=== PATIENT | female | born 1950 | race Caucasian/White ===

== ENCOUNTER 2017-08-08 13:16 | Outpatient (CLI) | payer MEDICARE, OTHER ==
--- NOTE | 2017-08-08 15:05 | RAD ---
FOUR VIEWS CERVICAL SPINE: FOUR VIEWS CERVICAL SPINE: Date: 08-08-17 History: Cervical disc degeneration. Bilateral hand numbness for four months. FINDINGS: C1 to the cervicothoracic junction seen on the lateral and swimmer's views of the cervical spine. Th ere are posterior changes related to anterior cervical fusion at the C5-6 and C6-7 levels with anter ior plate and screws transfixing this level. Intradiscal prosthesis are seen. No hardware complicati ons identified. There is a large osteophyte seen anteriorly at the C4-5 level. The vertebral body he ights are within normal limits. There is questionable slight anterolisthesis of C7 on T1. There are facet degenerative changes noted at this level. No obvious fracture is seen. Prevertebral soft tissu es are within normal limits. IMPRESSION: 1. Suggestion of slight anterolisthesis of C7 on T1. 2. Anterior cervical fusion at C5-6 and C6-7 levels. 3. Degenerative changes at the C4-5 level. 4. The post-surgical changes are stable compared to a study on 05-09-12. POS: [facility]
--- NOTE | 2017-08-08 16:32 | MRI ---
MRI CERVICAL SPINE WITH AND WITHOUT CONTRAST: Date: 08-08-17 History: Cervical disc degeneration. Bilateral arm numbness for four months. Patient denies injury. History of cervical spine surgery. Comparison: 02-16-12 FINDINGS: There are post-surgical changes related to anterior cervical fusion with metallic susceptibility art ifact related to anterior plate and screws transfixing the C5-6 and C6-7 levels. There is slight anterolisthesis of C3 on C4, similar to prior exam. There is otherwise normal signal intensity demonstrated throughout the bone marrow. C2-3: There is no significant disc bulge. There is mild facet degenerative changes on the left resul ting in mild left sided neural foraminal narrowing. The right neural foramen and central spinal frandy l are patent. C3-4: There is a mild broad based disc osteophyte complex which narrows the ventral subarachnoid spa ce resulting in slight mass effect on the anterior aspect of the central spinal cord. There are face t hypertrophic changes on the left with resulting mild to moderate left sided neural foraminal narro wing. The right neural foramen is patent. C4-5: There is posterior osteophyte formation with minimal disc bulge. There are facet hypertrophic changes primarily on the right. Findings result in mild central canal narrowing with moderate to sev ere bilateral neural foraminal narrowing. C5-6: There is a broad based disc osteophyte present which narrows the ventral subarachnoid space. T here is severe bilateral neural foraminal narrowing, greater on the left. C6-7: There is posterior osteophyte formation that slightly narrows the ventral subarachnoid space. Right neural foramen is patent, but there is mild to moderate left sided neural foraminal narrowing. C7-T1: There is minimal disc bulge. Central spinal canal and neural foramina are patent at this leve l. T1-2: There is minimal disc bulge narrowing the ventral subarachnoid space. Neural foramina are rizo nt at this level. No abnormal areas of enhancement are seen after the administration of intravenous contrast. IMPRESSION: 1. Post-surgical changes related to anterior cervical fusion at C5-6 and C6-7 levels. 2. Mild multilevel degenerative changes present. There is moderate to severe bilateral neural forami nal narrowing at the C4-5 level, primarily related to bony encroachment on each neural foramen. Carmen lar findings are seen at the C5-6 level. POS: [facility]
[2017-08-08] MEDS ORDERED: Gadobenate Dimeglumine 529 MG/1 ML (20ML VIAL) ONE (17:21)
== END 2017-08-08 13:17 | disposition home or self-care (01) ==
LOC: TBSIIMAG 13:16
PROVIDERS: ATTEND Neurological Surgery
DX: M50.30 Other cervical disc degeneration, unspecified cervical region (principal); M47.812 Spondylosis without myelopathy or radiculopathy, cervical region; M48.02 Spinal stenosis, cervical region; M43.12 Spondylolisthesis, cervical region; Z98.1 Arthrodesis status
CPT/HCPCS: 72050; 72156; A9579

== ENCOUNTER 2022-01-14 10:31 | Day surgery (SDC) | payer MEDICARE ==
[2022-01-12 15:43] VITALS: BMI 28.8
[2022-01-14] MEDS ORDERED: Levofloxacin 500 mg/D5W 100 ml Premix Bag ONE (11:23)
[2022-01-14] MEDS ORDERED: PROPOFOL 200 MG/20 ML VIAL ONE (11:51)
[2022-01-14] MEDS ORDERED: Ondansetron PF 4 MG/2 ML Vial ONE (11:51)
[2022-01-14] MEDS ORDERED: Lidocaine 1% PF 5 ML VIAL ONE (11:51)
[2022-01-14] MEDS ORDERED: Midazolam HCl 2 mg/2 ml Vial ONE (12:07)
[2022-01-14] MEDS ORDERED: Fentanyl 100 MCG/2 ML VIAL ONE (12:07)
[2022-01-14] MEDS ORDERED: Bupivacaine PF 0.5% 30 ML VIAL ONE ×2 (12:09→15:00)
[2022-01-14] MEDS ORDERED: Clindamycin/D5W 900 mg/50 ml Premix Bag ONE (12:23)
== END 2022-01-14 15:35 | disposition home or self-care (01) ==
LOC: SDC 10:31
PROVIDERS: ATTEND Orthopaedic Surgery
PROC: 0QSF04Z Reposition Left Patella with Internal Fixation Device, Open Approach (ICD-10-PCS; principal; 2022-01-14)
PROC: 3E0T3BZ Introduction of Anesthetic Agent into Peripheral Nerves and Plexi, Percutaneous Approach (ICD-10-PCS; 2022-01-14)
DX: S82.032A Displaced transverse fracture of left patella, initial encounter for closed fracture (principal); J45.909 Unspecified asthma, uncomplicated; G43.909 Migraine, unspecified, not intractable, without status migrainosus; Z79.01 Long term (current) use of anticoagulants; Z79.899 Other long term (current) drug therapy; Z88.0 Allergy status to penicillin; Z88.1 Allergy status to other antibiotic agents; Z95.0 Presence of cardiac pacemaker; W19.XXXA Unspecified fall, initial encounter
CPT/HCPCS: 76000; C1713; C1769; C1776; J1956; J2250; J2405; J2704; J3010; J3490; S0020

== ENCOUNTER 2022-05-06 11:47 | Outpatient (CLI) | payer MEDICARE ==
[2022-05-06 13:42] LABS: Hemoglobin 14.5 g/dL (12.0-15.5); Mean Corpuscular HGB CONC 33.1 g/dL (32.0-36.0); Mean Corpuscular Volume 90.5 fl (81.6-98.3); Mean Platelet Volume 9.9 fl (7.4-10.4); Platelet Count 399 10x3/uL (150-450); RBC Distribution Width 14.2 % (11.5-14.5); Red Blood Cell (RBC) Count 4.84 10x6/uL (3.90-5.03); White Blood Cell (WBC) Count 8.6 10x3/uL (3.5-10.5)
[2022-05-06 14:19] LABS: Anion Gap 15 mmol/L (10-20); BUN (Urea Nitrogen) 9 mg/dL (9.8-20.1); Calc. Creatinine Clearance 0 mL/min (70-130); Calcium 9.9 mg/dL (7.8-10.44); Carbon Dioxide 29 mmol/L (23-31); Chloride 102 mmol/L (98-107); Estimated GFR 82; Glucose 88 mg/dL (80-115); Potassium 4.4 mmol/L (3.5-5.1); Sodium 142 mmol/L (136-145)
== END 2022-05-06 11:48 | disposition home or self-care (01) ==
LOC: LABBT 11:47
PROVIDERS: ATTEND Orthopaedic Surgery
DX: Z01.812 Encounter for preprocedural laboratory examination (principal); Z20.822 Contact with and (suspected) exposure to COVID-19
CPT/HCPCS: 80048; 85027; 87811

== ENCOUNTER 2022-05-11 10:23 | Day surgery (SDC) | payer MEDICARE ==
[2022-05-06 10:19] VITALS: BMI 28.8
[2022-05-11] MEDS ORDERED: Levofloxacin 500 mg/D5W 100 ml Premix Bag ONE (11:21)
[2022-05-11] MEDS ORDERED: Clindamycin/D5W 900 mg/50 ml Premix Bag ONE (12:09)
[2022-05-11] MEDS ORDERED: fentaNYL Citrate/PF 100 MCG/2 ML SYRINGE ONE (12:11)
[2022-05-11] MEDS ORDERED: Ondansetron PF 4 MG/2 ML Vial ONE (12:25)
[2022-05-11] MEDS ORDERED: PROPOFOL 200 MG/20 ML VIAL ONE (12:25)
[2022-05-11] MEDS ORDERED: Dexamethasone 20 MG/5 ML VIAL ONE (12:25)
[2022-05-11] MEDS ORDERED: Bupivacaine 0.25% HCL 30 ML VIAL ONE (12:41)
[2022-05-11] MEDS ORDERED: EPINEPHrine 1 MG/ML AMP ONE (12:41)
[2022-05-11] MEDS ORDERED: Fentanyl 100 MCG/2 ML VIAL ONE (13:49)
[2022-05-11] MEDS ORDERED: HYDROcodone/Acetaminophen 5/325 mg Tablet ONE (14:52)
== END 2022-05-11 15:18 | disposition home or self-care (01) ==
LOC: SDC 10:23
PROVIDERS: ATTEND Orthopaedic Surgery
PROC: 0SNDXZZ Release Left Knee Joint, External Approach (ICD-10-PCS; principal; 2022-05-11)
PROC: 0QPF04Z Removal of Internal Fixation Device from Left Patella, Open Approach (ICD-10-PCS; 2022-05-11)
DX: M24.662 Ankylosis, left knee (principal); T84.84XA Pain due to internal orthopedic prosthetic devices, implants and grafts, initial encounter; J45.909 Unspecified asthma, uncomplicated; Z79.01 Long term (current) use of anticoagulants; Z79.899 Other long term (current) drug therapy; Z88.0 Allergy status to penicillin; Z88.1 Allergy status to other antibiotic agents; Z95.0 Presence of cardiac pacemaker; Z98.1 Arthrodesis status
CPT/HCPCS: 76000; J0171; J1100; J1956; J2405; J2704; J3010; J3490; S0020

== ENCOUNTER 2024-06-06 18:34 | Outpatient (CLI) | payer MEDICARE | END 2024-06-06 18:35 | disposition home or self-care (01) | LOC: SCSRAD 18:34 | PROVIDERS: ATTEND Nurse Practitioner Family | DX: R06.02 Shortness of breath (principal) | CPT/HCPCS: 71046 ==